=== PATIENT | female | born 1950 | race Caucasian/White ===

== ENCOUNTER 2020-07-23 13:11 | Emergency (ER) | payer BC, OTHER ==
[2020-07-23] MEDS ORDERED: ASPIRIN 81 MG CHEWABLE TABLET ONE (13:49)
[2020-07-23 14:13] LABS: Absolute Lymphocytes (CBC) 1.4 K/uL (0.7-4.9); Basophils % 0.9 % (0-1.3); Hematocrit 41.8 % (36.0-45.0); Lymphocytes % 18.4 % (15.3-44.8); RBC Red Blood Cell Count 4.49 M/uL (3.86-4.86)
[2020-07-23] MEDS ORDERED: FENTANYL CITR 100 MCG/2 ML ONE (14:23)
[2020-07-23 14:31] LABS: ALT/SGPT 31 U/L (12-78); AST/SGOT 19 U/L (15-37); Albumin 3.7 g/dL (3.4-5.0); Alkaline Phosphatase 99 U/L (45-117); BUN Blood Urea Nitrogen 18 mg/dL (7-18); Bicarbonate 30 mmol/L (21-32); Bilirubin Direct < 0.1 mg/dL (0-0.2); Bilirubin Total 0.3 mg/dL (0.2-1.0); Glucose Level 98 mg/dL (74-106); Magnesium 1.9 mg/dL (1.8-2.4); NT PRO-BNP 113 pg/mL (<125); Potassium 4.1 mmol/L (3.5-5.1); Protein, Total 7.5 g/dL (6.4-8.2); Sodium Level 142 mmol/L (136-145); Troponin (Emerg Dept Use Only) < 0.02 ng/mL (0.0-0.045)
[2020-07-23 14:36] LABS: Protime INR 2.32
--- NOTE | 2020-07-23 15:09 | RAD REPORT ---
EXAM DESCRIPTION: CT - Chest For Pe Angio - 07/23/2020 2:50 pm CLINICAL HISTORY: Hx PE;Chest pain COMPARISON: No comparisons TECHNIQUE: Dynamically enhanced 3 mm thick images of the chest were obtained during administration o f approximately 150mL Isovue 370 IV contrast. Coronal and oblique MIP reconstruction images were gene rated and reviewed. Exam utilizes a protocol to evaluate the pulmonary arterial tree. All CT scans are performed using dose optimization technique as appropriate and may include automated exposure control or mA/KV adjustment according to patient size. FINDINGS: No pulmonary emboli are identified. The aorta as imaged shows no acute or suspicious finding. No pericardial thickening or effusion. No c ardiomegaly. No suspicious mass lesion in the lung parenchyma. Right upper lobe bulla and bleb formation present. Prominent subpleural interstitial thickening pattern is seen in the lateral right upper lobe. Subpleu ral opacification is present in each lower lobe posteriorly. Overall interstitial pattern is prominen t throughout both lung flores. No prior imaging is available to establish baseline for the patient. No pneumothorax or pleural effusion. No mediastinal or hilar suspicious masses. No mass of the chest wall. No abnormal axillary lymphadeno juan. Patient has a very densely rim calcified breast implant on the right. No rib lesions identified. IMPRESSION: No pulmonary emboli identified. Very extensive interstitial opacification seen worse in the right upper lobe. No baseline comparison imaging for this patient. Much of the interstitial lung disease is chronic. Ho wever, superimposed interstitial edema or infiltrate would certainly be possible on the right upper l obe and in either lower lobe.
--- NOTE | 2020-07-23 15:26 | ER ---
Nurse's Notes [facility] Name: Guadalupe Fowler Age: 70 yrs Sex: Female : 1950 Arrival Date: 07/23/2020 Time: 13:13 Bed 14 Private MD: Diagnosis: Intercostal pain;Muscle spasm Presentation: 07/23 13:26 Chief complaint: Patient states: R lateral chest pain started 1 HR [employer]. Hx of PE on ca1 that side. Took Xarelto 20mg at 0400 then took another dose 1 hr [employer] when the pain started, with some relief. Pain is aggravated by repositioning. Coronavirus screen: Client denies travel out of the [place] in the last 14 days. At this time, the client does not indicate any symptoms associated with coronavirus-19. Ebola Screen: Patient negative for fever greater than or equal to 101.5 degrees Fahrenheit, and additional compatible Ebola Virus Disease symptoms Patient denies exposure to infectious person. Patient denies travel to an Ebola-affected area in the 21 days before illness onset. No symptoms or risks identified at this time. Initial Sepsis Screen: Does the patient meet any 2 criteria? No. Patient's initial sepsis screen is negative. Does the patient have a suspected source of infection? No. Patient's initial sepsis screen is negative. Risk Assessment: Do you want to hurt yourself or someone else? Patient reports no desire to harm self or others. Onset of symptoms was July 23, 2020. 13:26 Method Of Arrival: Wheelchair ca1 13:26 Acuity: TAYO 3 ca1 Historical: - Allergies: 13:29 Codeine; ca1 - Home Meds: 13:29 Xarelto 20 mg oral tab 1 tab once daily [Active]; ca1 - PMHx: 13:29 PE; Degenerative Athritis; ca1 - PSHx: 13:29 Neck Surgery; ca1 - Immunization history:: Adult Immunizations not up to date. - Social history:: Smoking status: Patient denies any tobacco usage or history of. Screenin:41 Abuse screen: Denies threats or abuse. Nutritional screening: No deficits noted. bw Tuberculosis screening: No symptoms or risk factors identified. Fall Risk None identified. Assessment: 13:39 Pain: Complains of pain in chest Pain does not radiate. Pain began 4 hours ago. Neuro: bw No deficits noted. Cardiovascular: Reports chest pain, Capillary refill < 3 seconds Pulses are all present. Rhythm is. Respiratory: No deficits noted. GI: No deficits noted. : No signs and/or symptoms were reported regarding the genitourinary system. EENT: No signs and/or symptoms were reported regarding the EENT system. Derm: No signs and/or symptoms reported regarding the dermatologic system. 14:24 Reassessment: Patient appears in no apparent distress at this time. No changes from bw previously documented assessment. Patient and/or family updated on plan of care and expected duration. Pain level reassessed. Patient is alert, oriented x 3, equal unlabored respirations, skin warm/dry/pink. 15:21 Reassessment: Patient appears in no apparent distress at this time. No changes from bw previously documented assessment. Patient and/or family updated on plan of care and expected duration. Pain level reassessed. Patient is alert, oriented x 3, equal unlabored respirations, skin warm/dry/pink. Vital Signs: 13:26 BP 142 / 88; Pulse 83; Resp 17 S; Temp 97(TE); Pulse Ox 97% on R/A; Weight 90.72 kg ca1 (R); Height 5 ft. 5 in. (165.10 cm) (R); Pain 7/10; 14:24 BP 131 / 80; Pulse 79; Resp 18; Pulse Ox 97% ; bw 14:30 Pain 7/10; sr5 15:21 BP 128 / 79; Pulse 80; Resp 18; Pulse Ox 97% on R/A; bw 13:26 Body Mass Index 33.28 (90.72 kg, 165.10 cm) ca1 14:30 c/o RIGHT lateral chest pain sr5 ED Course: 13:13 Patient arrived in ED. rg4 13:24 Javi Alvarado PA is PHCP. jr8 13:24 Anatoly Smith MD is Attending Physician. jr8 13:28 Triage completed. ca1 13:29 Arm band placed on right wrist. ca1 13:38 Lara Teran, NILE is Primary Nurse. bw 13:41 Patient has correct armband on for positive identification. Bed in low position. Call bw light in reach. Side rails up X 1. library monitor on. Pulse ox on. NIBP on. Warm blanket given. 13:41 No provider procedures requiring assistance completed. Patient maintains SpO2 bw saturation greater than 95% on room air. 14:07 Initial lab(s) drawn, by me, sent to lab. Inserted saline lock: 22 gauge in left vg1 antecubital area, using aseptic technique. Blood collected. 14:42 Inserted saline lock: 20 gauge in right forearm, using aseptic technique. IV sr5 discontinued, intact, 22G diffusics dc'd LEFT AC, infiltrated, non flushable. Gauze and tape applied. 14:50 CT Chest For PE Angio In Process Unspecified. EDMS 16:04 IV discontinued, intact, bleeding controlled, No redness/swelling at site. Pressure sv dressing applied. Administered Medications: 14:42 Drug: fentaNYL (PF) 50 mcg Route: IVP; Site: right forearm; sr5 Outcome: 15:25 Discharge ordered by . ronald 16:05 Discharged to home ambulatory, with family. sv 16:05 Condition: stable 16:05 Discharge instructions given to patient, Instructed on discharge instructions, follow up and referral plans. medication usage, Demonstrated understanding of instructions, follow-up care, medications, Prescriptions given X 2. 16:05 Patient left the ED. sv Signatures: Dispatcher [employer] EDMS Brenda Schumacher, RN RN Javi Dumont PA PA jr8 Osvaldo Anne RN RN sr5 Cinthia Denis Cheryl, RN RN Johana Arreaga, RN RN vg1 Lara Teran RN RN bw
--- NOTE | 2020-07-23 15:26 | EDPHYS ---
Physician Documentation [facility] Name: Guadalupe Fowler Age: 70 yrs Sex: Female : 1950 Arrival Date: 07/23/2020 Time: 13:13 Bed 14 Private MD: ED Physician Anatoly Smith HPI: 07/23 13:57 This 70 yrs old Female presents to ER via Wheelchair with complaints of Chest jr8 Pain. 13:57 Onset: The symptoms/episode began/occurred suddenly, today. patient reports having hx jr8 of PE last year which she takes daily Xarelto for. Today she reports standing up and feeling sharp pain in R lung. She denies SOB and CP. . Historical: - Allergies: 13:29 Codeine; ca1 - Home Meds: 13:29 Xarelto 20 mg oral tab 1 tab once daily [Active]; ca1 - PMHx: 13:29 PE; Degenerative Athritis; ca1 - PSHx: 13:29 Neck Surgery; ca1 - Immunization history:: Adult Immunizations not up to date. - Social history:: Smoking status: Patient denies any tobacco usage or history of. ROS: 13:58 Cardiovascular: Negative for chest pain, palpitations, and edema, Abdomen/GI: Negative jr8 for abdominal pain, nausea, vomiting, diarrhea, and constipation, MS/Extremity: Negative for injury and deformity, Skin: Negative for injury, rash, and discoloration, Neuro: Negative for headache, weakness, numbness, tingling, and seizure. 13:58 Respiratory: Positive for Pain in R lung. 14:00 Neck: Positive for stiffness, From previous surgery. jr8 17:06 All other systems are negative. jr8 Exam: 13:58 Chest/axilla: Normal chest wall appearance and motion. Nontender with no deformity. jr8 No lesions are appreciated. Cardiovascular: Regular rate and rhythm with a normal S1 and S2. No gallops, murmurs, or rubs. Normal PMI, no JVD. No pulse deficits. Abdomen/GI: Soft, non-tender, with normal bowel sounds. No distension or tympany. No guarding or rebound. No evidence of tenderness throughout. Skin: Warm, dry with normal turgor. Normal color with no rashes, no lesions, and no evidence of cellulitis. MS/ Extremity: Pulses equal, no cyanosis. Neurovascular intact. Full, normal range of motion. Neuro: Awake and alert, GCS 15, oriented to person, place, time, and situation. Cranial nerves II-XII grossly intact. Motor strength 5/5 in all extremities. Sensory grossly intact. Cerebellar exam normal. Normal gait. 13:58 Respiratory: mild respiratory distress is noted, Respirations: shallow respirations, that is mild, Breath sounds: are clear throughout, no decreased breath sounds, Due to patient not wanting to take deep breaths. , Respiratory rate: 24 17:06 ECG was reviewed by the Attending Physician. jr8 Vital Signs: 13:26 BP 142 / 88; Pulse 83; Resp 17 S; Temp 97(TE); Pulse Ox 97% on R/A; Weight 90.72 kg ca1 (R); Height 5 ft. 5 in. (165.10 cm) (R); Pain 7/10; 14:24 BP 131 / 80; Pulse 79; Resp 18; Pulse Ox 97% ; bw 14:30 Pain 7/10; sr5 15:21 BP 128 / 79; Pulse 80; Resp 18; Pulse Ox 97% on R/A; bw 13:26 Body Mass Index 33.28 (90.72 kg, 165.10 cm) ca1 14:30 c/o RIGHT lateral chest pain sr5 MDM: 13:24 Patient medically screened. jr8 15:22 Data reviewed: vital signs, nurses notes, lab test result(s), EKG, radiologic studies, jr8 doppler. Data interpreted: Pulse oximetry: on room air is 97 %. Interpretation: normal. Counseling: I had a detailed discussion with the patient and/or guardian regarding: the historical points, exam findings, and any diagnostic results supporting the discharge/admit diagnosis, lab results, radiology results, the need for outpatient follow up, a family practitioner, to return to the emergency department if symptoms worsen or persist or if there are any questions or concerns that arise at home. ED course: Discussed with patient no PE at this time. Most likely pain is coming from muscle or costal neuralgia. Will treat as such and see how she does. Knows to come back if worse. Patient pleased and good with plan . 07/23 13:43 Order name: Basic Metabolic Panel jr8 07/23 13:43 Order name: CBC with Diff; Complete Time: 14:22 jr8 04/01 13:43 Order name: LFT's; Complete Time: 14:41 07/23 13:43 Order name: Magnesium; Complete Time: 14:41 07/23 13:43 Order name: NT PRO-BNP; Complete Time: 14:41 07/23 13:43 Order name: PT-INR; Complete Time: 14:45 07/23 13:43 Order name: Troponin (emerg Dept Use Only); Complete Time: 14:41 07/23 13:43 Order name: EKG; Complete Time: 13:44 8 07/23 13:43 Order name: Cardiac monitoring; Complete Time: 13:52 07/23 13:43 Order name: EKG - Nurse/Tech; Complete Time: 13:53 07/23 13:43 Order name: CT Chest For PE Angio; Complete Time: 15:09 07/23 13:44 Order name: Basic Metabolic Panel; Complete Time: 14:41 EDWY 07/23 13:43 Order name: IV Saline Lock; Complete Time: 14:07/23 13:43 Order name: Labs collected and sent; Complete Time: 14:07/23 13:43 Order name: O2 Per Protocol; Complete Time: 13:53 07/23 13:43 Order name: O2 Sat Monitoring; Complete Time: 13:53 jr EC:06 Rate is 71 beats/min. Rhythm is regular, Normal Sinus Rhythm. QRS [place] is Normal. ND jr8 interval is normal at 138 msec. QRS interval is normal at 72 msec. QT interval is normal at 388 msec. No Q waves. T waves are Normal. No ST changes noted. Clinical impression: Normal ECG. Interpreted by me. Reviewed by me. Administered Medications: 14:42 Drug: fentaNYL (PF) 50 mcg Route: IVP; Site: right forearm; sr5 Disposition: 16:08 Co-signature as Attending Physician, Anatoly Smith MD I agree with the assessment and kdr plan of care. Disposition: 07/23/20 15:25 Discharged to Home. Impression: Intercostal pain, Muscle spasm. - Condition is Stable. - Discharge Instructions: Chest Wall Pain, Muscle Cramps and Spasms. - Prescriptions for Robaxin 500 mg Oral Tablet - take 2 tablet by ORAL route every 6 hours As needed; 40 tablet. Tramadol 50 mg Oral Tablet - take 1 tablet by ORAL route every 8 hours as needed; 20 tablet. - Medication Reconciliation Form, Thank You Letter, Antibiotic Education, Prescription Opioid Use form. - Follow up: Private Physician; When: 5 - 6 days; Reason: Recheck today's complaints, Continuance of care, Re-evaluation by your physician. - Problem is new. - Symptoms have improved. Signatures: Dispatcher [employer] [facility] Brenda Schumacher RN RN sv Anatoly Smith MD MD [facility] Javi Alvarado PA PA jr8 Osvaldo Anne RN RN sr5 Keyonna Araya RN RN ca1 Corrections: (The following items were deleted from the chart) 14:20 13:44 Chest Single View+[email or web address] ordered. [facility] 16:05 15:25 07/23/2020 15:25 Discharged to Home. Impression: Intercostal pain; Muscle spasm. sv Condition is Stable. Forms are Medication Reconciliation Form, Thank You Letter, Antibiotic Education, Prescription Opioid Use. Follow up: Private Physician; When: 5 - 6 days; Reason: Recheck today's complaints, Continuance of care, Re-evaluation by your physician. Problem is new. Symptoms have improved. jr8
[2020-07-24 05:38] VITALS: BP 142/88; TEMP 97; O2SAT 97
== END 2020-07-23 16:05 | disposition home or self-care (01) ==
LOC: ER 13:11
DX: M62.838 Other muscle spasm (principal); Z86.711 Personal history of pulmonary embolism; Z79.01 Long term (current) use of anticoagulants; Z88.5 Allergy status to narcotic agent
CPT/HCPCS: 93005; 85025; 80048; 36415; 83735; 85610; 80076; 84484; 83880; 71275; 96374; 99285; Q9967; J3010